=== PATIENT | male | born 1950 | race Two or more races ===

== ENCOUNTER 2024-02-08 10:07 | Emergency (ER) | payer MEDICARE, SELFPAY ==
--- NOTE | 2024-02-08 | ECG_ITS ---
Test Reason : VERTIGO Blood Pressure : / mmHG Vent. Rate : 058 BPM Atrial Rate : 058 BPM P-R Int : 178 ms QRS Dur : 082 ms QT Int : 420 ms P-R-T Axes : 007 029 044 degrees QTc Int : 412 ms Sinus bradycardia Otherwise normal ECG No previous ECGs available Referred By: Generic ED Physician Electronically Signed By:KRISTOFER PICKARD MD
[2024-02-08 10:09] VITALS: BP 140/79; PULSE 67; RESP 16; TEMP 36.3; O2SAT 97; BMI 33.5
[2024-02-08 10:43] LABS: MANUAL DIFF FLAG NO
[2024-02-08 10:46] LABS: Basophils Percent Auto 0.5 % (0-2); Eosinophils Absolute Auto 0.1 X10*3/uL (0.0-0.4); Eosinophils Percent Auto 2.8 % (0-4); Hematocrit 50.6 % (42.0-52.0); Hemoglobin 16.8 g/dl (14.0-18.0); Imm Gran Abs Auto 0.01 X10*3/uL (0.00-0.03); Imm Gran Pct Auto 0.2 % (0.0-0.4); Lymphocytes Absolute Auto 1.4 X10*3/uL (1.2-4.9); Lymphocytes Percent Auto 31.9 % (20-40); Mean Corpuscular HGB Conc 33.2 g/dl (31.0-36.0); Mean Corpuscular Hemoglobin 29.7 pg (27.0-33.0); Mean Corpuscular Volume 89.4 fL (80.0-98.0); Mean Platelet Volume 10.1 fL (9.4-12.4); Monocytes Absolute Auto 0.3 X10*3/uL (0.1-1.2); Monocytes Percent Auto 6.3 % (2-11); Neutrophils Absolute Auto 2.5 x10*3/uL (2.0-8.3); Neutrophils Percent Auto 58.3 % (45-73); Platelet Count 170 X10*3/uL (160-400); Red Blood Count 5.66 X10*6/uL (4.60-5.80); Red Cell Distribution Width 13.1 % (11.0-16.0); White Blood Count 4.3 X10*3/uL (4.8-10.8)
[2024-02-08 11:10] LABS: Alanine Aminotransferase 16 U/L (0-40); Albumin Level 4.5 g/dL (3.5-5.0); Alkaline Phosphatase 74 U/L (39-117); Anion Gap 12 (12-20); Aspartate Amino Transferase 18 U/L (5-37); Bilirubin Total 1.1 mg/dL (0.0-1.0); Blood Urea Nitrogen 25 mg/dL (9-16); Calcium 9.3 mg/dL (8.4-10.2); Carbon Dioxide 28 mmol/L (22-29); Chloride 103 mmol/L (96-108); Creatinine Clr Calc Pharmacy 92.4; Estimated Glomerular Filt Rate > 60; Glucose Random 147 mg/dL (60-115); Potassium 4.6 mmol/L (3.3-5.1); Sodium 138 mmol/L (135-145); Total Protein 7.4 g/dL (6.5-8.0)
--- NOTE | 2024-02-08 11:35 | PC.NURSE ---
Pt comes from home for dizziness that started last night when he was laying down. Pt states it felt like the room was spinning but has now felt like he's off balance and on a boat. He has had this prior and was prescribed meclazine 3x a day by urgent care and took it for one week and has since ran out. He states it helped with the dizziness but now has come back. Denies cp/sob/pop/n/v/d. A/ox4, respirations even and unlabored, lung sounds cta bilaterally, s1 and s2 heard, abdomen soft and non tender. Significant other at bedside, awaiting further orders at this time, call dorantes within reach.
[2024-02-08 11:42] VITALS: BP 134/76; PULSE 63; RESP 18; TEMP 36.7; O2SAT 95
--- NOTE | 2024-02-08 13:11 | ED_ITS ---
HPI - Dizziness General Chief Complaint: Dizziness Stated Complaint: vertigo Time Seen by Provider: 02/08/24 12:34 Source: patient and family Mode of arrival: ambulatory History of Present Illness ED Provider: Dr Irwin [facility] Narrative: 73-year-old male with history of diabetes, does have a history vertigo, has recently returned from living [facility] the [facility], was evaluated at urgent care approximately 1-1/2-2 weeks ago and at that facility he received meclizine and reports good resolution of his symptoms, he otherwise denies any visual/speech difficulties, denies any unilateral numbness/tingling/weakness and denies any recent fevers or chills as well as denies any bowel or bladder issues. Patient does have a follow-up appointment with the primary care doctor next week. Related Data Previous Rx's ?Medication ?Instructions ?Recorded meclizine 12.5 mg tablet 12.5 mg PO TID PRN dizziness #14 02/08/24 tabs Allergies Allergy/AdvReac Type Severity Reaction Status Date / Time No Known Allergies Allergy Verified 02/08/24 10:15 Review of Systems 2 Review of Systems: Pertinent positives and negatives as stated in [facility] Past Medical History Source: nursing notes reviewed Social History Social History Advance Directives: No Physical Exam 2 Vital Signs: Vital Signs: Last Vital Signs Temp 98.0 F 02/08/24 11:42 Pulse 63 02/08/24 11:42 Resp 18 02/08/24 11:42 BP 134/76 02/08/24 11:42 Pulse Ox 95 02/08/24 11:42 O2 Del Method Room Air 02/08/24 11:42 BMI result Body Mass Index 33.5 VITAL SIGNS: Reviewed. GENERAL: Well developed, well nourished, in no acute distress. HEAD: Normocephalic/atraumatic EYES: PERRLA, EOMI EARS: Ext canals without abnormality, TMs non-bulging and non-erythematous NOSE: Nares patent bilateral OROPHARYNX: no oral lesions noted, posterior pharynx clear and non-erythematous without noted tonsillar enlargement/erythema/exudates NECK: Supple, no adenopathy LUNGS: Normal breath sounds. No adventitious sounds or accessory muscle use. SpO2<95> CARDIOVASCULAR: Regular rate and rhythm without noted murmurs, no JVD or lower extremity edema. ABDOMEN: Soft, non-tender, non-distended with bowel sounds. MUSCULOSKELETAL: No tenderness, deformities, or effusions noted on gross inspection. EXTREMITIES: No cyanosis, clubbing or edema. SKIN: Inspection of the skin reveals no rashes, ulcerations, jaundice, pallor, or petechiae. NEUROLOGIC: Alert and oriented x 4. Strength and sensation to light touch were grossly intact x 4. No gait instability Medical Decision Making Medical Decision Making [facility] Narrative: 73-year-old male with history and clinical presentation, I see no evidence on clinical exam to better explain patient's vertigo, there is no significant cerumen impaction or evidence to suggest ear infection, no focal findings to suggest neurologic deficit, no recent history or clinical findings to suggest infection. Patient otherwise appears well and will receive meclizine from us. He has good follow-up and is otherwise discharged. I reviewed lab work from today and compared it to outpatient lab work that patient had in his possession and has been scanned into his electronic record. Hematologic indices are negative for leukocytosis/anemia/thrombocytopenia. Chemistry indices do not demonstrate an MICKIE/electrolyte or liver enzyme derangements other than patient has a chronically detectable total bilirubin level but otherwise no other derangements noted. Differential Diagnosis Differential Diagnoses: The differential diagnosis associated with the presentation includes Please see the discussion above Admission/Observation Consideration of admission/observation: Escalation of care including admission/observation considered Please see the discussion above Lab Data [facility] Lab Attestation statement: I reviewed the patient's lab results. Please see the discussion above 02/08/24 10:40 02/08/24 10:40 Labs: Lab Results 02/08/24 Range/Units 10:40 WBC 4.3 L (4.8-10.8) X10*3/uL RBC 5.66 (4.60-5.80) X10*6/uL Hgb 16.8 (14.0-18.0) g/dl Hct 50.6 (42.0-52.0) % MCV 89.4 (80.0-98.0) fL MCH 29.7 (27.0-33.0) pg MCHC 33.2 (31.0-36.0) g/dl RDW 13.1 (11.0-16.0) % Plt Count 170 (160-400) X10*3/uL MPV 10.1 (9.4-12.4) fL Immature Gran % (Auto) 0.2 (0.0-0.4) % Neut % (Auto) 58.3 (45-73) % Lymph % (Auto) 31.9 (20-40) % Redwood % (Auto) 6.3 (2-11) % Eos % (Auto) 2.8 (0-4) % Baso % (Auto) 0.5 (0-2) % Lymph # (Auto) 1.4 (1.2-4.9) X10*3/uL Red[place] # (Auto) 0.3 (0.1-1.2) X10*3/uL Eos # (Auto) 0.1 (0.0-0.4) X10*3/uL Baso # (Auto) 0.0 (0.0-0.2) X10*3/uL Abs Immat Gran (auto) 0.01 (0.00-0.03) X10*3/uL Absolute Neuts (auto) 2.5 (2.0-8.3) x10*3/uL Absolute Nucleated RBC 0.000 (0.0-0.012) X10*3/uL Nucleated RBC % (auto) 0.0 (0.0-0.2) /100WBC Sodium 138 (135-145) mmol/L Potassium 4.6 (3.3-5.1) mmol/L Chloride 103 (96-108) mmol/L Carbon Dioxide 28 (22-29) mmol/L Anion Gap 12 (12-20) BUN 25 H (9-16) mg/dL Creatinine 0.92 (0.5-1.4) mg/dL Estim Creat Clear Calc 92.4 Estimated GFR > 60 Random Glucose 147 H (60-115) mg/dL Calcium 9.3 (8.4-10.2) mg/dL Total Bilirubin 1.1 H (0.0-1.0) mg/dL AST 18 (5-37) U/L ALT 16 (0-40) U/L Alkaline Phosphatase 74 (39-117) U/L Total Protein 7.4 (6.5-8.0) g/dL Albumin 4.5 (3.5-5.0) g/dL External Record Review External record reviewed: Outpatient record and Prior outpatient labs Chronic Conditions Patient?s care impacted by: Diabetes Critical Care Time Critical Care Time Critical Care Time: Yes Total Critical Care Time: 30 Attestation: I personally attest to this time spent taking care of the patient. Discharge Plan Discharge Clinical Impression: Vertigo Patient Disposition: Home, Self-Care Instructions: Vertigo (ED) Additional Instructions: 1. Resume all home medications as prescribed. 2. Please keep your scheduled appointment next week with your primary care doctor. You will also need to pursue further evaluation by an head transfer clerk to ensure no visual issues which could also lead to vertigo. Return to the ER for any worsening symptoms. Prescriptions: New meclizine 12.5 mg tablet 12.5 mg PO TID PRN (Reason: dizziness) Qty: 14 0RF Referrals: Cinda Cody CNA [Primary Care Provider] - Print Language: Bahamian
[2024-02-08] MEDS: Meclizine HCl 25 MG TABLET 12.5 MG PO (13:35)
[2024-02-08 17:49] VITALS: BP 134/76; PULSE 63; RESP 18; TEMP 36.8; O2SAT 98
== END 2024-02-08 17:50 | disposition home or self-care (01) ==
PROVIDERS: Emergency Provider Student in an Organized Health Care Education/Training Program
DX: R42 Dizziness and giddiness (principal)
CPT/HCPCS: 36415; 80053; 85025; 93005; 99283; 99285

== ENCOUNTER → 2024-02-08 10:18 | Outpatient (BNV) | payer MEDICARE, SELFPAY | PROVIDERS: Emergency Provider Student in an Organized Health Care Education/Training Program; Visit Provider Internal Medicine Cardiovascular Disease | DX: R00.1 Bradycardia, unspecified (principal) | CPT/HCPCS: 93010 ==